=== PATIENT | female | born 1965 | race Caucasian/White ===

== ENCOUNTER 2025-02-03 19:26 | Emergency (ER) | payer OTHER, MEDICAID ==
[~2025-02-03] VITALS: Ht 167.6 cm; Wt 91.0 kg
[2025-02-03 19:46] VITALS: O2SAT 98
[2025-02-03 21:42] VITALS: BP 136/65; PULSE 95; RESP 18; TEMP 37; O2SAT 98
== END 2025-02-03 21:34 | disposition home or self-care (01) ==
LOC: ER 19:26
DX: S05.11XA Contusion of eyeball and orbital tissues, right eye, initial encounter (principal); M79.602 Pain in left arm; E11.9 Type 2 diabetes mellitus without complications; V49.40XA Driver injured in collision with unspecified motor vehicles in traffic accident, initial encounter; Y93.89 Activity, other specified; Y92.410 Unspecified street and highway as the place of occurrence of the external cause; Y99.8 Other external cause status
CPT/HCPCS: 73060; 99284